=== PATIENT | male | born 1960 | race Caucasian/White ===

== ENCOUNTER → 2016-07-12 | Day surgery (SDC) | payer BC, OTHER ==
[~2016-07-12] MED LIST: ACETAMINOPHEN/HYDROcodone 325 MG/7.5 MG TAB ONE; BUPIVACAINE/EPINEPHRINE 0.25% 50 ML VIAL ONE; KETOROLAC TROMETHAMINE 30 MG/ML (IVP) VIAL IV PUSH ONE; LACTATED RINGER'S 1000 ML INJ 1,000 ML ONE; MIDAZOLAM HCL 2 MG/2 ML VIAL ONE; MORPHINE SULFATE 4 MG/ML INJ ONE; ONDANSETRON HCL 4 MG/2 ML VIAL IV PUSH ONE; PROPOFOL 200 MG/20 ML AMP IV ONE; ceFAZolin INJ 1,000 MG VIAL ONE
--- NOTE | 2016-07-12 16:12 | TN ---
cc: DORETHA CAMERON MD DATE OF SURGERY: 07/12/2016. PREOPERATIVE DIAGNOSIS: Left knee torn medial meniscus. POSTOPERATIVE DIAGNOSIS: Left knee torn medial meniscus. OPERATIVE PROCEDURE PERFORMED: Left knee arthroscopy with partial medial meniscectomy. DESCRIPTION OF THE PROCEDURE IN DETAIL: Informed consent was obtained. The patient was taken to the operating room and placed in the supine position on the operating table. He was administered a general anesthesia by Dr. Bae of the anesthesia department. At that time, a tourniquet was applied to the left thigh. The left leg was prepped with Betadine soap followed by Betadine paint . The patient was given a gram of Ancef prior to initiation of the operative procedure. After the prep and drape in standard fashion with sterile down sheets, sterile U-drape and sterile stockinette over the foot and calf and this was wrapped with a Coban and an extremity drape was applied. The leg was elevated. A time out was held and confirmed. The table was elevated to maximum height. The tourniquet was inflated to 300 mmHg. The left leg was flexed over the side of the operating table. An 18 gauge spinal needle was placed in the region of the lateral infrapatellar portal. This region was infiltrated 4 mL of 0.25% Marcaine with epinephrine. Infiltration was also performed in the medial infrapatellar portal and transpatellar tendon portal region. A small incision was made with an 11-blade in the region of the transpatellar tendon portal. An inflow cannula was placed. A second incision was placed in the region of the lateral infrapatellar portal. The arthroscopic cannula was placed. Diagnostic arthroscopy commenced. The medial compartment was examined. The anterior and medial portion of the medial meniscus (zone 2 and zone 3) appeared intact. However, posteriorly there was a radial tear with flaps noted in zone 1 near the posterior horn. The tear was probed through a medial portal and was debrided with upbiting basket forceps and the Jovanna meniscal shaver. There were no significant arthritic changes noted in the medial femoral condyle or the medial tibial plateau. The scope was maneuvered to the intercondylar notch at the edge of the lateral compartment. The leg was placed in a figure-four position. The lateral femoral condyle, lateral tibial plateau, lateral meniscus and popliteus tendon all appeared normal. The scope was placed in the intercondylar notch and again the leg was flexed over the side of the operative table. Anterior and posterior cruciate ligaments appeared intact. The scope was placed in the posteromedial and posterolateral compartments. These appeared normal. The scope was then placed in suprapatellar pouch. This appeared normal. The undersurface of the patella demonstrated some very mild chondromalacic changes. There was a plica band debrided, which is questionably pathologic in the medial infrapatellar region. At that time, the knee was thoroughly irrigated and suctioned. All cannulas were removed. Each portal was closed with a single 4-0 nylon interrupted stitch. A second stitch was placed in the medial portal. The patient tolerated the procedure well. At that time, Band-Aids, 4x4s, Sof-Rol and MONICA wrap were applied to the patient's leg and the tourniquet was deflated. Total tourniquet time was 32 minutes. The patient tolerated the procedure well and was then taken to the recovery room in stable condition. At the completion of the procedure, the sponge count, instrument counts and needle counts were all correct. The estimated blood loss was less than 10 cc. Total tourniquet time was 32 minutes. MD MARQUISE Nunes/CIRO /3:40 PM /3:58 PM
== END | disposition home or self-care (01) ==
LOC: ESDC 13:01
PROVIDERS: ATTEND Orthopaedic Surgery
DX: S83.242A Other tear of medial meniscus, current injury, left knee, initial encounter (principal)
CPT/HCPCS: 01400; 29881; J0690; J1885; J2250; J2270; J2405; J3010; J7120